=== PATIENT | female | born 1995 | race Caucasian/White ===

== ENCOUNTER 2022-01-29 08:03 | Emergency (ER) | payer BC, SELFPAY ==
[2022-01-29 08:11] VITALS: BP 119/74; PULSE 105; RESP 16; TEMP 37.1; O2SAT 99
--- NOTE | 2022-01-29 08:14 | ED.SKABFB ---
HPI - Skin/Abscess/Foreign Bdy General Chief complaint: Skin/Abscess/Foreign Body Stated complaint: Rash Time Seen by Provider: 01/29/22 08:18 Source: patient and RN notes reviewed Mode of arrival: ambulatory Limitations: no limitations History of Present Illness HPI narrative: 26-year-old female presents with concern for rash from poison sumac. Reports on Wednesday she was cutting down weeds and noticed poison sumac. She immediately went into take a shower. However she still noticed a rash later that night. Reports the rash spread from her ankle up her legs, to her thighs and now to her abdomen. Reports it is weeping clear fluid and is very itchy. She reports it was hard to breathe yesterday but otherwise denies any stridor, swollen lips, swollen tongue. Denies any current shortness of breath, wheezing, stridor, trouble breathing. Denies nausea, vomiting, diarrhea, fever. MD complaint: rash Related Data Allergies Allergy/AdvReac Type Severity Reaction Status Date / Time No Known Allergies Allergy Verified 01/29/22 08:19 Review of Systems Review of Systems: CONSTITUTIONAL: Denies malaise, chills, sweats, or fever. EYES: Denies redness, or discharge. ENT: Denies rhinorrhea, congestion, swollen lips, swollen tongue CARDIOVASCULAR: Denies chest pain, palpitations, or edema. RESPIRATORY: Denies cough or dyspnea. GASTROINTESTINAL: Denies abdominal pain, nausea, vomiting SKIN: Reports itchy and weeping rash on the legs, abdomen MUSCULOSKELETAL: Denies joint painor myalgia. NEUROLOGIC: Denies headache. All systems reviewed & are unremarkable except as noted in HPI and below PMFSH Comments At time of signature, agree with nursing past medical, surgical, social and family history. There is no relevant family history pertinent to the presenting complaint Exam Narrative: GENERAL: Well-appearing, well-nourished, and in no acute distress. HEAD: Normocephalic, atraumatic. EYES: PERRLA, conjunctivae clear, and EOMI. ENT: Mucous membranes moist. Oropharynx without edema, erythema or lesions. NECK: Supple. No lymphadenopathy CHEST: Clear to auscultation. No respiratory distress. HEART: Regular rate and rhythm. SKIN: Warm, dry. Patches of linear erythematous papules noted to the ankles, patches of vesicles with yellow-colored fluid surrounded by erythematous papules noted to the inner thighs, patches of erythematous papules noted to the abdomen NEURO: Alert and oriented x3. PSYCH: Normal mood and affect Course Course Emergency Course: Patient is aware of diagnosis, understands and agrees to treatment plan. Anticipatory guidance given. Patient agrees to follow-up as directed and is aware of reasons to seek care at the emergency department. Portions of this record may have been created with voice recognition software Level of Care: Express Care Visit Reevaluation(s) Reevaluation #1: Patient reports slight improvement after methylprednisolone IM injection Date: 01/29/22 Time: 09:02 Vital Signs Vital signs: Vital Signs Temperature 98.7 F 01/29/22 08:11 Pulse Rate 105 H 01/29/22 08:11 Respiratory Rate 16 01/29/22 08:11 Blood Pressure 119/74 01/29/22 08:11 Pulse Oximetry 99 01/29/22 08:11 Temperature 98.7 F 01/29/22 08:11 Pulse Rate 105 H 01/29/22 08:11 Respiratory Rate 16 01/29/22 08:11 Blood Pressure 119/74 01/29/22 08:11 Pulse Oximetry 99 01/29/22 08:11 Reviewed. MDM - Skin/Abscess/Foreign Bdy MDM Narrative Medical decision making narrative: Does not appear at this time to be erythema multiforme, bullous, SJS, TEN; no evidence at this time to suggest RMSF, endocarditis or Lyme disease; patient looks well, nontoxic and is tolerating oral intake; no neurologic signs or symptoms; no headache, photophobia or neck pain; afebrile; appropriate for initial outpatient treatment; discussed the importance of follow-up, patient agrees; question, viral exanthema, contact dermatitis, allergic dermatitis, ec
[2022-01-29] MEDS: methylPREDNISolone SOD SUCC 125 MG VIAL IM (08:36)
== END 2022-01-29 09:04 | disposition home or self-care (01) ==
PROVIDERS: Emergency Provider Nurse Practitioner
DX: L25.9 Unspecified contact dermatitis, unspecified cause (principal)
CPT/HCPCS: 96372; 99203; G0463; J2930

== ENCOUNTER 2022-04-11 12:51 | Emergency (ER) | payer BC, SELFPAY ==
[2022-04-11 13:11] VITALS: BP 115/73; PULSE 83; RESP 16; TEMP 36.5; O2SAT 100
--- NOTE | 2022-04-11 13:12 | ED.GENADULT ---
HPI - General Adult General Chief complaint: Skin/Abscess/Foreign Body Stated complaint: Rash Source: patient Mode of arrival: ambulatory Limitations: no limitations History of Present Illness HPI narrative: Patient presents for evaluation of pruritic rash to the face, back, and extremities x4 for the past 2 days. She believes her symptoms are related to exposure to poison dori. She states she had poison sumac about two months ago. It sounds like she received a steroid burst. She states her symptoms improved while on medication. She also received a script for steroid cream. She has oral and topical benadryl at home. She denies any difficulty breathing or swallowing. No additional complaints or concerns. Related Data Home Medications Medication Instructions Recorded Confirmed buspirone 10 mg tablet 1 tablet PO BID 04/11/22 04/11/22 carbamazepine 200 mg tablet tablet 04/11/22 (Epitol) sumatriptan succinate 50 mg tablet tablet PO 04/11/22 topiramate 50 mg tablet 50 mg PO BID 04/11/22 04/11/22 trazodone 50 mg tablet 50 mg PO DAILY 04/11/22 04/11/22 Allergies Allergy/AdvReac Type Severity Reaction Status Date / Time No Known Allergies Allergy Verified 04/11/22 13:02 Review of Systems Review of Systems: CONSTITUTIONAL: Denies fever, chills, or sweats. EYES: Denies visual changes, redness, or discharge. ENT: Denies rhinorrhea, congestion, sore throat, or otalgia. CARDIOVASCULAR: Denies chest pain, palpitations, or edema. RESPIRATORY: Denies cough or dyspnea. GASTROINTESTINAL: Denies abdominal pain, nausea, vomiting, or diarrhea. GENITOURINARY: Denies dysuria or hematuria. SKIN: Reports pruritic rash to the face, low back, and extremities x4. MUSCULOSKELETAL: Denies back pain, joint pain, or myalgia. NEUROLOGIC: Denies headache, numbness, dizziness, or weakness. PSYCHIATRIC: Denies anxiety or depression. [facility] Past Medical History Medical History Poison sumac Surgical History Surgical History History of History of tubal ligation Family History Family History Mother No pertinent past medical history Social History Social History Smoking status: Current every day smoker Tobacco type: e-cigarettes/vaping Living arrangements: with family Gender identity (if verbalized by the patient): Female Sexual Orientation (if Verbalized by the Patient): Straight or Heterosexual Spiritual care concerns: No Exam Narrative: GENERAL: Well-appearing, well-nourished, and in no acute distress. HEAD: Normocephalic, atraumatic. EYES: PERRLA and EOMI. ENT: Nares clear, no rhinorrhea or epistaxis. Mucous membranes moist. Oropharynx without tonsillar hypertrophy exudate or other lesions. Bilateral TMs pearly torrez nonbulging NECK: Supple. No adenopathy or masses. No carotid bruits or JVD CHEST: Clear to auscultation. No respiratory distress. No wheezes rales or rhonchi HEART: Regular rate and rhythm. No murmur heard. Normal peripheral pulses. ABDOMEN: Soft, nontender, nondistended, normal active bowel sounds. EXTREMITIES: Normal range of motion. No edema. SKIN: There are a few scattered macules daily symptoms into the left lower back somewhat streaking present. There is an area of linear streaking to right upper eyelid NEURO: No focal deficits. Alert and oriented x3. PSYCH: Normal mood and affect. Course Course Emergency Course: This is a 26-year-old female who presented with complaints of skin rash following poison dori exposure. She was given Solu-Medrol while here. Will discharge with 2-week steroid taper. Oral Benadryl may help. Cool compresses may help. Continues calamine. Follow-up outpatient for further evaluation and treatment and return for worsen
[2022-04-11] MEDS: methylPREDNISolone SOD SUCC 125 MG VIAL IM (13:15)
== END 2022-04-11 13:20 | disposition home or self-care (01) ==
PROVIDERS: Emergency Provider Nurse Practitioner
DX: L23.7 Allergic contact dermatitis due to plants, except food (principal); F17.290 Nicotine dependence, other tobacco product, uncomplicated
CPT/HCPCS: 96372; 99213; G0463; J2930

== ENCOUNTER 2023-06-26 10:42 | Emergency (ER) | payer BC, SELFPAY ==
[2023-06-26 10:48] VITALS: BP 97/80; PULSE 104; RESP 20; TEMP 37.1; O2SAT 100
--- NOTE | 2023-06-26 11:21 | ED.URI ---
HPI - URI/Sore Throat General Chief Complaint: Upper Respiratory Infection Stated Complaint: swollen throat Source: patient Mode of arrival: ambulatory Limitations: no limitations History of Present Illness HPI Narrative: 28-year-old female presents to [facility] with complaints of sore throat, bilateral ear pain, cough and body aches since last night. Patient denies chills or fever. Patient reports that her daughter was diagnosed with strep throat last week. Patient reports that she was diagnosed with COVID 1 month ago. Patient has been taking [id number] Sudafed with minimal relief. Patient does vape daily. Patient denies recent travel. MD elicited complaint: cough, rhinorrhea and nasal congestion Onset (ago): hour(s) (12) Able to tolerate fluids by mouth: Yes Treatments prior to arrival: cold medicine Related Data Home Medications Medication Instructions Recorded Confirmed buspirone 10 mg tablet 1 tablet PO BID 04/11/22 06/26/23 carbamazepine 200 mg tablet 1 tablet PO DAILY 04/11/22 06/26/23 (Epitol) sumatriptan succinate 50 mg tablet 1 tablet PO DAILY 04/11/22 topiramate 50 mg tablet 50 mg PO BID 04/11/22 06/26/23 trazodone 50 mg tablet 50 mg PO DAILY 04/11/22 06/26/23 Allergies Allergy/AdvReac Type Severity Reaction Status Date / Time No Known Allergies Allergy Verified 06/26/23 10:54 Review of Systems Constitutional: Constitutional: Reports chills, Denies fatigue, Reports fever(s) and Denies weakness ENT: Denies dizziness, Denies epistaxis, Reports nasal congestion and Reports sore throat Cardiovascular: Cardiovascular: Denies chest pain Respiratory: Respiratory: Reports cough, Denies dyspnea and Denies wheezing Gastrointestinal: Gastrointestinal: Denies diarrhea, Denies nausea and Denies vomiting Integumentary/Breasts: Skin/Breast: Denies rash Neurologic: Denies syncope and Denies headache(s) [facility] Past Medical History Medical History Poison sumac Surgical History Surgical History History of History of tubal ligation Family History Family History Mother No pertinent past medical history Social History Social History Smoking status: Current every day smoker Tobacco type: e-cigarettes/vaping Living arrangements: with family Gender identity (if verbalized by the patient): Female Sexual Orientation (if Verbalized by the Patient): Straight or Heterosexual Spiritual care concerns: No Comments At time of signature, I agree with nursing past medical, surgical, social and family history. There is no relevant family history pertinent to the presenting complaint. Exam Const: General: healthy appearing and no acute distress Nutritional Appearance: well nourished Orientation/consciousness: patient oriented x3 Limitations: no limitations HENMT: Ears: external ears normal, TM's normal bilaterally and EAC's normal Face/Nose/Sinus: Normal external nose present Face and sinus: normal facial exam and sinuses nontender Mouth: Yes lip normal and Yes moist mucous membranes Teeth and gingiva: dentition normal Throat: uvula midline Other: Mild erythema noted to oropharynx, moderate nasal congestion noted bilateral. Eyes: Conjunctivae: conjunctivae normal Neck: Neck: normal visual inspection Resp: Effort & Inspection: normal respiratory effort and not labored Auscultation: clear to auscultation bilaterally, no crackles, no rales and no rhonchi Cardio: Rate: regular rate Rhythm: regular rhythm Heart sounds: no murmurs Skin: General skin exam: normal color Rashes: no rashes Wounds: no wounds Neuro: Speech: normal speech Gait exam (Neuro): Normal gait present Psych: Affect: normal affect Attitude: cooperative Course Course Level
== END 2023-06-26 11:38 | disposition home or self-care (01) ==
PROVIDERS: Emergency Provider Nurse Practitioner Family
DX: B34.9 Viral infection, unspecified (principal); F17.290 Nicotine dependence, other tobacco product, uncomplicated; Z86.16 Personal history of COVID-19
CPT/HCPCS: 87081; 87804; 87880; 99213; G0463

== ENCOUNTER 2023-12-11 14:12 | Emergency (ER) | payer BC, SELFPAY ==
[2023-12-11 14:20] VITALS: BP 123/70; PULSE 98; RESP 20; TEMP 36.9; O2SAT 100
[2023-12-11 14:35] VITALS: BP 123/70; PULSE 98; RESP 20; TEMP 36.9; O2SAT 100
--- NOTE | 2023-12-11 14:43 | ED.URI ---
HPI - URI/Sore Throat General Chief Complaint: Upper Respiratory Infection Stated Complaint: throat/diarrhea/cough Time Seen by Provider: 12/11/23 14:35 Source: patient, RN notes reviewed and old records reviewed Mode of arrival: ambulatory Limitations: no limitations History of Present Illness HPI Narrative: 28 year old female who presents to [facility] care with complaints of 2 day history of sore throat, post nasal drainage with some chills and had episode of diarrhea today. Patient reports that daughter tested positive for strep throat on and she has also been exposed to flu from co-worker, Patent reports no known fevers, denies any body aches some cough with no shortness of breath.. MD elicited complaint: cough and sore throat Onset (ago): day(s) (2) Pain scale (0-10): 5 Able to tolerate fluids by mouth: Yes Treatments prior to arrival: other (cough drops) Related Data Home Medications Medication Instructions Recorded Confirmed trazodone 50 mg tablet 50 mg PO DAILY PRN Sleep 04/11/22 06/26/23 Allergies Allergy/AdvReac Type Severity Reaction Status Date / Time No Known Allergies Allergy Verified 06/26/23 10:54 Review of Systems Review of Systems: CONSTITUTIONAL: Denies malaise, positive for chills,no sweats, or no fever. EYES: Denies visual changes, redness, or discharge. ENT: Reports rhinorrhea, congestion, sinus pain, no otalgia and sore throat. CARDIOVASCULAR: Denies chest pain, palpitations, or edema. RESPIRATORY: Reports cough.? Denies dyspnea. GASTROINTESTINAL: Denies abdominal pain, nausea, vomiting,positive for episode of diarrhea today SKIN: Denies rash or itching. MUSCULOSKELETAL: Denies myalgia. NEUROLOGIC: Denies headache. All systems reviewed & are unremarkable except as noted in HPI and below PMFSH Past Medical History Medical History Brown recluse spider bite Depression Migraine Poison sumac Surgical History Surgical History History of History of tubal ligation Family History Family History Mother No pertinent past medical history Social History Social History Smoking status: Current every day smoker Tobacco type: e-cigarettes/vaping Living arrangements: with family Gender identity (if verbalized by the patient): Female Sexual Orientation (if Verbalized by the Patient): Straight or Heterosexual Spiritual care concerns: No Comments At time of signature, agree with nursing past medical, surgical, social and family history. There is no relevant family history pertinent to the presenting complaint Exam Narrative: GENERAL: Well-appearing, well-nourished, and in no acute distress. HEAD: Normocephalic EYES: PERRLA, conjunctivae clear ENT: Nares clear, turbinates edematous and erythematous, clear discharge. Mucous membranes moist. TM pearly torrez with dull light reflex bilaterally; no tragal tenderness. Oropharynx erythematous without lesions. Tonsils not enlarged and without exudate, no drooling, no hoarseness, no trismus, uvula midline.post nasal drainage NECK: Supple. No lymphadenopathy CHEST: Clear to auscultation, breath sounds equal. No wheezing, rhonchi, rales, or stridor. No respiratory distress, speaks in full sentences.no tachypnea, SAO2 100% on room air HEART: Regular rate and rhythm. No murmur heard. SKIN: Warm, dry, no rash. NEURO: Alert and oriented x3. PSYCH: Normal mood and affect Course Course Emergency Course: Patient is aware of diagnosis, understands and agrees to treatment plan.? Anticipatory guidance given.? Patient agrees to follow-up as directed and is aware of reasons to seek care at the emergency department. Portions of this record may have been created with voice recogn
== END 2023-12-11 14:55 | disposition home or self-care (01) ==
PROVIDERS: Emergency Provider Registered Nurse
DX: J06.9 Acute upper respiratory infection, unspecified (principal); Z20.822 Contact with and (suspected) exposure to COVID-19; F17.290 Nicotine dependence, other tobacco product, uncomplicated; F32.A Depression, unspecified
CPT/HCPCS: 87081; 87426; 87804; 87880; 99213; G0463